=== PATIENT | male | born 1990 | race Asian ===

== ENCOUNTER 2021-07-26 19:53 | Emergency (ER) | payer OTHER ==
[~2021-07-26] VITALS: Ht 185.4 cm; Wt 148.9 kg
[2021-07-26 21:15] LABS: BASOPHILS % 0.8 % (0.0-2.0); HEMOGLOBIN. 13.7 g/dL (14.0-18.0); LYMPHOCYTES % 12.8 % (20.0-50.0); MEAN CORPUSCULAR HEMOGLOBIN 26.2 pg (28.0-32.0); MEAN CORPUSCULAR VOLUME 76.5 fL (80.0-94.0); MEAN PLATELET VOLUME 6.8 fl (7.4-10.4); MONOCYTES % 7.3 % (2.0-8.0); NEUTROPHILS % 79.1 % (40.0-76.0); PLATELET 467 x1000/uL (130-400); RED BLOOD CELL COUNT 5.23 mill/uL (4.7-6.1); RED CELL DISTRIBUTION WIDTH 14.4 % (11.6-14.6)
[2021-07-26] MEDS ORDERED: ASPIRIN 325MG EC TABLET PO ONE (21:15)
[2021-07-26] MEDS ORDERED: MORPHINE SULFATE 4 MG/ML CPJ (NOT FOR IM USE) IV ONE (21:15)
[2021-07-26 21:19] LABS: CHLORIDE 104 mEq/L (98-107)
[2021-07-26] MEDS ORDERED: MORPHINE SULFATE 4 MG/ML CPJ (NOT FOR IM USE) IV NR (22:00)
[2021-07-26] MEDS ORDERED: ASPIRIN 325MG EC TABLET PO NR (22:30)
[2021-07-26] MEDS ORDERED: KETOROLAC 30MG/ML VIAL IV ONE (23:15)
[2021-07-26] MEDS ORDERED: COLCHICINE 0.6MG TABLET PO ONE (23:45)
[2021-07-26] MEDS ORDERED: PREDNISONE 20MG TABLET PO ONE (23:45)
[2021-07-27] MEDS ORDERED: COLC0.6C3 MT (00:03)
[2021-07-27] MEDS ORDERED: P50 MT (00:03)
[2021-07-27] MEDS ORDERED: INDO50CA98 MT (00:03)
[2021-07-27 01:07] VITALS: BP 143/87
== END 2021-07-27 01:50 | disposition home or self-care (01) ==
LOC: ER 19:53
DX: M10.9 Gout, unspecified (principal); M25.531 Pain in right wrist; M25.561 Pain in right knee; E66.9 Obesity, unspecified; Z68.41 Body mass index [BMI] 40.0-44.9, adult
CPT/HCPCS: 36415; 71045; 71275; 80053; 83880; 84484; 85025; 85379; 93005; 96374; 96375; 99285; J1885; J2270; J7512; Z7610